=== PATIENT | female | born 1995 | race Caucasian/White ===

== ENCOUNTER 2018-05-28 13:11 | Emergency (ER) | payer SELFPAY ==
--- NOTE | 2018-05-28 13:49 | EDPHY ---
H & P Stated Complaint: Facial numbness @ R cheekbone~ 1 wk;no injury Time Seen by Provider: 05/28/18 13:48 - Personal History Current Tetanus Diphtheria and Acellular Pertussis (TDAP): Yes - Medical/Surgical History Other PMH: healthy - Social History Smoking Status: Current some day smoker Constitutional: Initial Vital Signs Temperature (C) 36.9 C 05/28/18 13:14 Heart Rate 86 05/28/18 13:14 Respiratory Rate 16 05/28/18 13:14 Blood Pressure 128/93 H 05/28/18 13:14 O2 Sat (%) 98 05/28/18 13:14 O2 Delivery Mode Room Air Allergies/Adverse Reactions: No Known Allergies Allergy (Unverified 05/28/18 13:14) Home Medications: Medication Instructions Recorded Valacyclovir HCl [Valtrex] 1,000 mg PO TID #21 tab 05/28/18 predniSONE 40 mg PO DAILY #14 tab 05/28/18 Medical Decision Making ED Course/Re-evaluation: CHIEF COMPLAINT: Right-sided facial droop / numbness HISTORY OF PRESENT ILLNESS: This patient is a 22 year-old female with 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 This began about two days ago. Prior to this, she had right-sided facial numbness for several days. She endorses numbness in her tongue. The patient denies any extremity numbness or paresthesias. No fever, difficulty speaking, headache, confusion, or other associated symptoms. REVIEW OF SYSTEMS: A 10 point review of systems was performed and is negative with the exception of the elements mentioned in the history of present illness. PHYSICAL EXAM: HR, BP, O2 Sat, RR. Temp noted General Appearance: Alert, well hydrated, appropriate, and non-toxic appearing. Head: Atraumatic without scalp tenderness or obvious injury Eyes: Pupils equal, round, reactive to light and accommodation, EOMI, no trauma , no injection. Ears: Clear bilaterally, no perforation, normal landmarks Nose: Atraumatic, no rhinorrhea, clear. Throat: There is no erythema or exudates, no lesions, normal tonsils, mucus membranes moist. Neck: Supple, 2+ carotid upstroke, nontender, no lymphadenopathy. Respiratory: No retractions, no distress, no wheezes, and no accessory muscle use. Lungs are clear to auscultation bilaterally. Cardiovascular: Regular rate and rhythm, no murmurs, rubs, or gallops. Bilateral carotid, radial, dorsalis pedis, and posterior tibial pulses intact. Good capillary refill all extremities. Gastrointestinal: Abdomen is soft, nontender, non-distended, no masses, no rebound, no guarding, no peritoneal signs. Musculoskeletal: Normal active ROM of all extremities, atraumatic. Neurological: Alert, appropriate, and interactive. Unilateral right-sided facial paralysis including eyebrow sagging, inability to close the eye, disappearance of the nasolabial fold, and drooping at the corner of the mouth. Skin: No rashes, good turgor, no nodules on palpation. Past medical history: Guillaume's Palsy Past surgical history: Noncontributory Family history: Noncontributory. Social history: Recently moved to [place] from [place]. DIFFERENTIAL DIAGNOSIS: The differential diagnosis for the patient's neurologic deficits included but was not limited to peripheral causes including [place] Palsy, central causes including CVA, TIA, electrolyte abnormalities and dehydration, cardiogenic causes, atypical causes like migraine syndrome. MEDICAL DECISION MAKIN22 y/o female presents with right-sided facial droop and associated numbness. Facial paralysis is unilateral, involving the forehead, peripheral distribution. History and presentation is consistent with Guillaume's Palsy, and the patient endorses history of Guillaume's palsy as a child. Plan to administer antivirals and steroid Plan to administer 60mg PO prednisone and 1000mg PO valacyclovir for symptom relief. Plan to discharge home in good condition. She will follow up with her primary care provider. Provided prescriptions for Valtrex and Prednisone. Return precautions discussed. She is comfortable with this plan. - Data Points Medications Given: Discontinued Medications Prednisone (Prednisone) 60 mg PO EDNOW ONE Stop: 05/28/18 13:56 Last Admin: 05/28/18 14:07 Dose: 60 mg Valacyclovir HCl (Valtrex) 1,000 mg PO EDNOW ONE Stop: 05/28/18 13:55 Last Admin: 05/28/18 14:08 Dose: 1,000 mg Departure - Departure Disposition: Home, Routine, Self-Care Clinical Impression: Guillaume's palsy Condition: Good Instructions: Guillaume Palsy (ED) Additional Instructions: Take Valtrex as prescribed. Take Prednisone as prescribed. Follow up with your primary care provider. Referrals: Tim Fox MD [Medical Doctor] - As per Instructions Joseph Thorpe MD [Medical Doctor] - As per Instructions Prescriptions: predniSONE 40 mg PO DAILY #14 tab Valacyclovir HCl [Valtrex] 1,000 mg PO TID #21 tab Report Scribed for: Darin Berman Report Scribed by: Nicolasa Hernandez Date of Report: 05/28/18 Time of Report: 14:01
[2018-05-28] MEDS ORDERED: valACYclovir 500 MG TAB PO ONE (13:54)
[2018-05-28] MEDS ORDERED: predniSONE 20 MG TAB PO ONE (13:55)
[2018-05-28 14:15] VITALS: BP 122/69
== END 2018-05-28 14:13 | disposition home or self-care (01) ==
DX: R20.2 Paresthesia of skin (principal); G51.0 Bell's palsy; F17.200 Nicotine dependence, unspecified, uncomplicated
CPT/HCPCS: J7512

== ENCOUNTER 2019-02-08 19:35 | Emergency (ER) | payer OTHER ==
[2019-02-08] MEDS ORDERED: NS 1,000 ML IV ONE (19:59)
[2019-02-08] MEDS ORDERED: ONDANSETRON 4 MG/2 ML VIAL IVP ONE ×2 (19:59→22:11)
--- NOTE | 2019-02-08 20:05 | EDPHY ---
HPI/HX/ROS/PE/MDM Narrative: CHIEF COMPLAINT: Vomiting HPI: The patient is a 23-year-old female with no significant past medical history. She states that she has had severe nausea and vomiting over the last 24 hr and is unable to keep anything down. She took a home test last week that was positive and has not followed up on it. Her LMP was mid- December. She denies vaginal bleeding but does describe LLQ pelvic pain. REVIEW OF SYSTEMS: Aside from elements discussed in the HPI, a comprehensive 10-point review of systems was reviewed and is negative. PMH: None significant. SOCIAL HISTORY:Denies alcohol or drug abuse. PHYSICAL EXAM: General:Patient is alert, in no acute distress. ENT:Eyes are normal to inspection. ENT inspection normal. Neck: Normal inspection. Full range of motion. Respiratory:No respiratory distress. Breath sounds normal bilaterally. Cardiovascular: Regular rate and rhythm. Strong peripheral pulses. Normal cap refill. Abdomen:The abdomen is tender to palpation in the LLQ. There are no peritoneal signs. There are normal bowel sounds. Back: Normal to inspection. No tenderness to palpation. Skin: Normal color. No rash. Warm and dry. Extremities: Normal appearance. Full range of motion. Neuro: Oriented x3. Normal motor function. Normal sensory function. ED Course: 2315: On re-evaluation, patient's abdomen is benign and she states her abdominal pain has completely resolved. She reports feeling hungry but still a little nauseated. MDM: This patient presents with vomiting in the setting of early that has not yet been worked up. We performed a pelvic ultrasound which is negative for signs of ectopic . The patient has a yolk sac in the uterus. Her urinalysis is quite dirty and I do not think this represents true proteinuria or glucosuria. Patient does have a mildly elevated glucose and would certainly benefit from outpatient workup to exclude diabetes or her gestational diabetes. The only concerning feature under workup is elevated white blood cell count. However, she is afebrile and on re-evaluation, she states her abdominal pain has completely resolved. While her urine is dirty, it does not seem consistent with pyelonephritis side doubt this is the source. Patient has no abdominal tenderness now to suggest appendicitis. She denies any vaginal bleeding or discharge to suggest a miscarriage. I think the leukocytosis may be secondary to prolonged vomiting. I suspect that the vomiting is likely secondary to . I had extensive discussion with the patient regarding follow-up and she states that she has not followed up with OBGYN because she is waiting for her Medicaid to get approved. I stressed the need to do this as soon as possible even if it means pain hopper and have recommended she return to the emergency department tomorrow for recheck if her symptoms persist. - Data Points Laboratory Results: Laboratory Results 02/08/19 20:00 02/08/19 20:00 02/08/19 02/08/19 02/08/19 20:04 20:00 20:00 WBC 19.59 10^3/uL H 10^3/uL (3.80-9.50) RBC 4.72 10^6/uL 10^6/uL (4.18-5.33) Hgb 14.9 g/dL g/dL (12.6-16.3) Hct 43.1 % % (38.0-47.0) MCV 91.3 fL fL (81.5-99.8) MCH 31.6 pg pg (27.9-34.1) MCHC 34.6 g/dL g/dL (32.4-36.7) RDW 11.8 % % (11.5-15.2) Plt Count 433 10^3/uL H 10^3/uL (150-400) MPV 9.0 fL fL (8.7-11.7) Neut % (Auto) 90.0 % H % (39.3-74.2) Lymph % (Auto) 6.6 % L % (15.0-45.0) [place] % (Auto) 2.3 % L % (4.5-13.0) Eos % (Auto) 0.0 % L % (0.6-7.6) Baso % (Auto) 0.4 % % (0.3-1.7) Nucleat RBC Rel Count 0.0 % % (0.0-0.2) Absolute Neuts (auto) 17.61 10^3/uL H 10^3/uL (1.70-6.50) Absolute Lymphs (auto) 1.30 10^3/uL 10^3/uL (1.00-3.00) Absolute Monos (auto) 0.46 10^3/uL 10^3/uL (0.30-0.80) Absolute Eos (auto) 0.00 10^3/uL L 10^3/uL (0.03-0.40) Absolute Basos (auto) 0.08 10^3/uL 10^3/uL (0.02-0.10) Absolute Nucleated RBC 0.00 10^3/uL 10^3/uL (0-0.01) Immature Gran % 0.7 % % (0.0-1.1) Immature Gran # 0.14 10^3/uL H 10^3/uL (0.00-0.10) Sodium 135 mEq/L mEq/L (135-145) Potassium 3.9 mEq/L mEq/L (3.5-5.2) Chloride 103 mEq/L mEq/L (97-110) Carbon Dioxide 15 mEq/l L mEq/l (22-31) Anion Gap 17 mEq/L H mEq/L (6-14) BUN 10 mg/dL mg/dL (7-23) Creatinine 0.6 mg/dL mg/dL (0.6-1.0) Estimated GFR > 60 Glucose 153 mg/dL H mg/dL (70-100) Calcium 9.9 mg/dL mg/dL (8.5-10.4) Beta HCG, Quant 95631.00 mIU/mL H mIU/mL (0.00-4.83) Urine Color YELLOW Urine Appearance HAZY Urine pH 5.0 (5.0-7.5) Ur Specific [place] 1.032 H (1.002-1.030) Urine Protein 2+ H (NEGATIVE) Urine Ketones 2+ H (NEGATIVE) Urine Blood NEGATIVE (NEGATIVE) Urine Nitrate NEGATIVE (NEGATIVE) Urine Bilirubin NEGATIVE (NEGATIVE) Urine Urobilinogen NEGATIVE EU EU (0.2-1.0) Ur Leukocyte Esterase NEGATIVE (NEGATIVE) Urine RBC 1-3 /hpf /hpf (0-3) Urine WBC 1-3 /hpf /hpf (0-3) Ur Epithelial Cells 2+ /lpf H /lpf (NONE-1+) Urine Mucus 1+ /lpf /lpf (NONE-1+) Urine Glucose 1+ H (NEGATIVE) Medications Given: Discontinued Medications Sodium Chloride (Ns) 1,000 mls @ 0 mls/hr IV EDNOW ONE; Wide Open PRN Reason: Protocol Stop: 02/08/19 20:00 Last Admin: 02/08/19 20:12 Dose: 1,000 mls Ondansetron HCl (Zofran) 4 mg IVP EDNOW ONE Stop: 02/08/19 20:00 Last Admin: 02/08/19 20:12 Dose: 4 mg Ondansetron HCl (Zofran) 4 mg IVP EDNOW ONE Stop: 02/08/19 22:12 Last Admin: 02/08/19 22:11 Dose: 4 mg General Time Seen by Provider: 02/08/19 19:51 Initial Vital Signs: Initial Vital Signs Temperature (C) 36.3 C 02/08/19 19:37 Heart Rate 71 02/08/19 19:37 Respiratory Rate 16 02/08/19 19:37 Blood Pressure 116/62 02/08/19 19:37 O2 Sat (%) 100 02/08/19 19:37 O2 Delivery Mode Room Air Allergies/Adverse Reactions: No Known Allergies Allergy (Verified 02/08/19 19:37) Home Medications: Medication Instructions Recorded Ondansetron Odt [Zofran Odt] 4 mg PO Q4PRN PRN #10 tab 02/08/19 Departure - Departure Disposition: Home, Routine, Self-Care Clinical Impression: Intrauterine , Vomiting Condition: Good Instructions: (ED) Additional Instructions: Follow-up with an treasury accountant as soon as possible, ideally within 24 hr. If you are unable to follow up with treasury accountant, return to the emergency department tomorrow for re-evaluation if you're symptomatic. Return to the emergency department immediately for fever, worsening abdominal pain, inability to hold down food or fluids or other concerns. Referrals: NONE *PRIMARY CARE P,. [Primary Care Provider] - As per Instructions Prescriptions: Ondansetron Odt [Zofran Odt] 4 mg PO Q4PRN PRN #10 tab PRN Reason: Nausea
[2019-02-08 20:15] LABS: PLATELET COUNT 433 10^3/uL (150-400)
[2019-02-08] MEDS ORDERED: ONDANSETRON 4 MG/2 ML VIAL ONE (22:09)
[2019-02-08] MEDS ORDERED: METOCLOPRAMIDE 10 MG/2 ML VIAL IVP ONE (23:13)
[2019-02-08] MEDS ORDERED: ONDANSETRON 4MG PREPACK#2 BTL TAKEHOME ONE (23:20)
[2019-02-09 00:09] VITALS: BP 117/81
== END 2019-02-09 00:22 | disposition home or self-care (01) ==
DX: Z32.01 Encounter for pregnancy test, result positive (principal); R11.2 Nausea with vomiting, unspecified; R10.32 Left lower quadrant pain; E86.9 Volume depletion, unspecified; Z3A.01 Less than 8 weeks gestation of pregnancy
CPT/HCPCS: 96374; J2405; J2765